=== PATIENT | male | born 1985 | race Caucasian/White ===

== ENCOUNTER 2017-04-02 03:48 | Emergency (ER) | payer MEDICARE ==
[~2017-04-02] VITALS: Ht 185.4 cm; Wt 126.4 kg
[~2017-04-02 03:48] MED LIST: /QUET10TA OR; ABIL10TA OR; LISI10TA4 OR; METF500T4 OR
[2017-04-02] MEDS ORDERED: XANA0.5T PO (04:04)
--- NOTE | 2017-04-02 05:40 | REPUSA ---
HISTORY: Trauma. COMPARISON: Not provided. TECHNIQUE: Multiple thin section helically-acquired axially-displayed and helically acquired coronall y displayed computed tomographic images of the face are obtained from the mandible through the fronta l sinuses, with images obtained at soft tissue and bone window. 2D reformatted images were performed. FINDINGS: Normal bony mineralization. No fractures. Normal orbits. Air-fluid level in the right maxillary sinus. Chronic mucosal inflammatory changes in the maxillary sinuses and ethmoid air cells. Normal oral and nasal cavities. Normal infratemporal fossa and deep parapharyngeal spaces with normal muscles of mastication. Normal parotid and submandibular glands. IMPRESSION: Air-fluid level in the right maxillary sinus. No fracture. Thank you for your kind referral of this patient
[2017-04-02 05:45] LABS: CONTROL LINE INT CTR LINE PRESENT; HIV SCRN NEGATIVE (NEGATIVE); HIV SCRN1 NEGATIVE (NEGATIVE)
[2017-04-02] MEDS ORDERED: AUGM500T34 PO (06:09)
[2017-04-02 06:19] VITALS: BP 168/63
[2017-04-03 10:02] LABS: HEPATITIS B SURFACE ANTIBODY NEGATIVE (POSITIVE)
== END 2017-04-02 06:28 | disposition home or self-care (01) ==
LOC: EDBD 03:48 → M ED 05:16
DX: S00.83XA Contusion of other part of head, initial encounter (principal); Y04.8XXA Assault by other bodily force, initial encounter; S61.459A Open bite of unspecified hand, initial encounter; Y04.1XXA Assault by human bite, initial encounter; Y92.019 Unspecified place in single-family (private) house as the place of occurrence of the external cause; Y93.9 Activity, unspecified; Y99.8 Other external cause status; F41.9 Anxiety disorder, unspecified; E11.9 Type 2 diabetes mellitus without complications; Z79.899 Other long term (current) drug therapy